=== PATIENT | female | born 1980 | race Two or more races ===

== ENCOUNTER 2019-05-03 08:11 | Day surgery (SDC) | payer SELFPAY ==
[2019-05-03] MEDS ORDERED: Sodium Chloride 0.9% 10 ML Syringe FLUSH PRN (08:54)
[2019-05-03] MEDS ORDERED: Ondansetron 4 MG/2 ML SDV IVPUSH ONE (08:54)
[2019-05-03] MEDS ORDERED: Sodium Chloride 0.9% 1,000 ML IV SCH (09:00)
--- NOTE | 2019-05-03 09:03 | EDM.PDOC ---
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 She reports her last menstrual period was around 02/24/2019, making her about 9.5 weeks . She reports that the bleeding has been bright red and fills the toilet bowl. Her abdomen has a burning pain with abdominal cramping that she rates at a 10/ 10 in severity. She has been nauseous since the bleeding and abdominal pain started and has had an episode of emesis at least every 15-30 minutes. At this point the vomit is mainly bile and secretions. She reports she has had morning sickness twice since becoming , but reports this feels different. ( Adenike Ferreira) - Related Data Allergies Allergy/AdvReac Type Severity Reaction Status Date / Time No Known Allergies Allergy Verified 05/03/19 08:45 Home Meds: Home Meds . [No Known Home Meds] 05/03/19 [History] Social & Family History - Tobacco Use Smoking Status *Q: Never Smoker <Adenike Ferreira - Last Filed: 05/03/19 08:57> ED ROS GENERAL - Review of Systems Review Of Systems: See Below Constitutional: Reports: Chills, Diaphoresis. Denies: Fever Respiratory: Reports: No Symptoms. Denies: Shortness of Breath, Wheezing, Cough Cardiovascular: Reports: Chest Pain (occasional with emesis). Denies: Edema, Lightheadedness, Syncope GI/Abdominal: Reports: Abdominal Pain (burning/cramping in lower abdomen), Nausea, Vomiting. Denies: Diarrhea, Hematemesis : Reports: Other (bleeding bright red with no clots since 0145). Denies: Dysuria Musculoskeletal: Reports: No Symptoms. Denies: Back Pain, Muscle Pain Skin: Reports: Pallor. Denies: Rash, Erythema Neurological: Reports: No Symptoms. Denies: Dizziness, Headache, Syncope Psychiatric: Reports: No Symptoms <Adenike Ferreira - Last Filed: 05/03/19 08:57> ED EXAM - Physical Exam Exam: See Below Exam Limited By: No Limitations General Appearance: Alert, WD/WN, Moderate Distress Head: Atraumatic, Normocephalic Respiratory/Chest: No Respiratory Distress, Lungs Clear, Normal Breath Sounds, No Accessory Muscle Use, Chest Non-Tender Cardiovascular: Normal Peripheral Pulses, Regular Rate, Rhythm, No Edema, No Gallop, No Murmur, No Rub GI/Abdominal Exam: Normal Bowel Sounds, Soft, No Organomegaly, No Distention, Tender (generalized, more severe in lower quadrants) Back Exam: Normal Inspection, Full Range of Motion Extremities: Normal Inspection, Normal Range of Motion, Non-Tender, No Pedal Edema, Normal Capillary Refill Neurological: Alert, Oriented, Normal Cognition, No Motor/Sensory Deficits Psychiatric: Normal Affect, Normal Mood Skin Exam: Warm, Dry, Intact, No Rash, Diaphoretic, Pallor <Adenike Ferreira - Last Filed: 05/03/19 08:57> Course <Adenike Ferreira - Last Filed: 05/03/19 08:57> <Trevon Nolen - Last Filed: 05/08/19 18:54> - Vital Signs Last Recorded V/S: Last Vital Signs Temp 98.3 F 05/04/19 08:00 Pulse 106 H 05/03/19 19:58 Resp 16 05/04/19 08:00 BP 114/69 05/04/19 08:00 Pulse Ox 98 05/04/19 08:00 Orthostatic Blood Pressure [ 99/66 Standing] Orthostatic Blood Pressure [ 114/74 Sitting] Orthostatic Blood Pressure [ 99/66 Supine] - Orders/Labs/Meds Labs: Laboratory Tests 05/03/19 05/03/19 05/03/19 Range/Units 10:05 10:05 10:05 WBC 22.61 H (3.98-10.04) K/mm3 RBC 5.12 (3.98-5.22) M/mm3 Hgb 15.0 (11.2-15.7) gm/dl Hct 46.5 H (34.1-44.9) % MCV 90.8 (79.4-94.8) fl MCH 29.3 (25.6-32.2) pg MCHC 32.3 (32.2-35.5) g/dl RDW Std Deviation 40.4 (36.4-46.3) fL Plt Count 284 (182-369) K/mm3 MPV 9.5 (9.4-12.3) fl Neut % (Auto) 93.0 H (34.0-71.1) % Lymph % (Auto) 4.1 L (19.3-51.7) % Lipscomb % (Auto) 2.4 L (4.7-12.5) % Eos % (Auto) 0.1 L (0.7-5.8) Baso % (Auto) 0.1 (0.1-1.2) % Neut # (Auto) 21.03 H (1.56-6.13) K/mm3 Lymph # (Auto) 0.93 L (1.18-3.74) K/mm3 Lipscomb # (Auto) 0.54 H (0.24-0.36) K/mm3 Eos # (Auto) 0.02 L (0.04-0.36) K/mm3 Baso # (Auto) 0.03 (0.01-0.08) K/mm3 Manual Slide Review Abnormal smear Sodium 139 (136-145) mEq/L Potassium 4.1 (3.5-5.1) mEq/L Chloride 103 (98-107) mEq/L Carbon Dioxide 24 (21-32) mEq/L Anion Gap 16.1 H (5-15) BUN 9 (7-18) mg/dL Creatinine 0.8 (0.55-1.02) mg/dL Est Cr Clr Drug Dosing 69.16 mL/min Estimated GFR (MDRD) > 60 (>60) mL/min BUN/Creatinine Ratio 11.3 L (14-18) Glucose 155 H (74-106) mg/dL Calcium 9.4 (8.5-10.1) mg/dL Total Bilirubin 0.5 (0.2-1.0) mg/dL AST 14 L (15-37) U/L ALT 19 (14-59) U/L Alkaline Phosphatase 67 (46-116) U/L Total Protein 8.9 H (6.4-8.2) g/dl Albumin 4.6 (3.4-5.0) g/dl Globulin 4.3 gm/dL Albumin/Globulin Ratio 1.1 (1-2) HCG, Qual Positive H (NEGATIVE) HCG, Quant mIU/mL 05/03/19 05/03/19 05/03/19 Range/Units 10:05 17:27 17:27 WBC 17.83 H (3.98-10.04) K/mm3 RBC 4.08 (3.98-5.22) M/mm3 Hgb 12.1 D (11.2-15.7) gm/dl Hct 37.5 (34.1-44.9) % MCV 91.9 (79.4-94.8) fl MCH 29.7 (25.6-32.2) pg MCHC 32.3 (32.2-35.5) g/dl RDW Std Deviation 39.7 (36.4-46.3) fL Plt Count 260 (182-369) K/mm3 MPV 9.1 L (9.4-12.3) fl Neut % (Auto) 94.6 H (34.0-71.1) % Lymph % (Auto) 4.9 L (19.3-51.7) % Lipscomb % (Auto) 0.3 L (4.7-12.5) % Eos % (Auto) 0 L (0.7-5.8) Baso % (Auto) 0.1 (0.1-1.2) % Neut # (Auto) 16.87 H (1.56-6.13) K/mm3 Lymph # (Auto) 0.87 L (1.18-3.74) K/mm3 Lipscomb # (Auto) 0.06 L (0.24-0.36) K/mm3 Eos # (Auto) 0.00 L (0.04-0.36) K/mm3 Baso # (Auto) 0.01 (0.01-0.08) K/mm3 Manual Slide Review Abnormal smear Sodium (136-145) mEq/L Potassium (3.5-5.1) mEq/L Chloride (98-107) mEq/L Carbon Dioxide (21-32) mEq/L Anion Gap (5-15) BUN (7-18) mg/dL Creatinine (0.55-1.02) mg/dL Est Cr Clr Drug Dosing mL/min Estimated GFR (MDRD) (>60) mL/min BUN/Creatinine Ratio (14-18) Glucose (74-106) mg/dL Calcium (8.5-10.1) mg/dL Total Bilirubin (0.2-1.0) mg/dL AST (15-37) U/L ALT (14-59) U/L Alkaline Phosphatase (46-116) U/L Total Protein (6.4-8.2) g/dl Albumin (3.4-5.0) g/dl Globulin gm/dL Albumin/Globulin Ratio (1-2) HCG, Qual (NEGATIVE) HCG, Quant 7535.0 4050.0 mIU/mL Meds: Medications Discontinued Medications Generic Name Dose Route Start Last Admin Trade Name Freq PRN Reason Stop Dose Admin Bupivacaine HCl Confirm 05/03/19 14:44 Marcaine 0.5% Administered 05/03/19 14:45 Dose 30 ml .ROUTE .STK-MED ONE Cefazolin Sodium Confirm 05/03/19 14:45 Ancef Administered 05/03/19 14:46 Dose 2 gm .ROUTE .STK-MED ONE Fentanyl Confirm 05/03/19 14:45 Sublimaze Administered 05/03/19 14:46 Dose 250 mcg .ROUTE .STK-MED ONE Hydromorphone HCl 0.5 mg 05/03/19 11:19 05/03/19 11:42 Dilaudid IVPUSH 05/03/19 11:20 0.5 mg ONETIME ONE Administration Sodium Chloride 1,000 mls @ 999 mls/hr 05/03/19 09:00 05/03/19 10:13 Normal Saline IV 999 mls/hr ONETIME RENNY Administration Lactated Ringer's 1,000 mls @ 150 mls/hr 05/03/19 13:54 05/03/19 16:36 Ringers, Lactated IV 05/03/19 20:33 150 mls/hr ONETIME ONE Administration Lidocaine HCl Confirm 05/03/19 14:45 Xylocaine-Mpf 1% Administered 05/03/19 14:46 Dose 4 mls @ as directed .ROUTE .STK-MED ONE Lactated Ringer's Confirm 05/03/19 14:45 Ringers, Lactated Administered 05/03/19 14:46 Dose 1,000 mls @ as directed .ROUTE .STK-MED ONE Lactated Ringer's 1,000 mls @ 125 mls/hr 05/03/19 16:42 05/04/19 03:52 Ringers, Lactated IV 125 mls/hr ASDIRECTED RENNY Administration Ketorolac Tromethamine Confirm 05/03/19 15:30 Toradol Administered 05/03/19 15:31 Dose 30 mg .ROUTE .STK-MED ONE Metoclopramide HCl 5 mg 05/03/19 11:19 05/03/19 11:40 Reglan IVPUSH 05/03/19 11:20 5 mg ONETIME ONE Administration Midazolam HCl Confirm 05/03/19 14:45 Versed 1 Mg/Ml Administered 05/03/19 14:46 Dose 2 mg .ROUTE .STK-MED ONE Ondansetron HCl 4 mg 05/03/19 08:54 05/03/19 10:13 Zofran IVPUSH 05/03/19 08:55 4 mg ONETIME ONE Administration Ondansetron HCl Confirm 05/03/19 14:45 Zofran Administered 05/03/19 14:46 Dose 4 mg .ROUTE .STK-MED ONE Ondansetron HCl 4 mg 05/03/19 16:42 Zofran IVPUSH Q4H PRN Nausea/Vomiting Propofol Confirm 05/03/19 14:45 Diprivan 20 Ml Administered 05/03/19 14:46 Dose 400 mg .ROUTE .STK-MED ONE Rocuronium Medicine Bow Confirm 05/03/19 14:45 Zemuron Administered 05/03/19 14:46 Dose 50 mg .ROUTE .STK-MED ONE Sodium Chloride 10 ml 05/03/19 08:54 05/03/19 10:06 Saline Flush FLUSH 10 ml ASDIRECTED PRN Administration Keep Vein Open Succinylcholine Chloride Confirm 05/03/19 14:45 Succinylcholine In Ns Pf Administered 05/03/19 14:46 Dose 100 mg .ROUTE .STK-MED ONE - Re-Assessments/Exams Free Text/Narrative Re-Assessment/Exam: 05/03/19 11:05. ultrasound report is back, no intrauterine gestational sac, 2 small uterine fibroids, hemorrhagic cyst 3.5 cm within the right ovary GEN of surrounding free fluid or blood. 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 I agree with hx and exam as documented. I have also interviewed patient and her and examined patient. Still awaiting HCG. She was given zofran IV which did not stop the vomiting. Still having moderate pelvic pain, will give reglan IV, dilaudid 0.5 mg IV. 05/03/19 11:55. hCG is positive quantitative hCG ordered. white blood count elevated at 22,000, hemoglobin 15, Other chemistries relatively normal.She iis resting more comfortably now after IV reglan and dialuaid. We have done orth's, BP 99/66, 71 lying, 99/66, 75 standing but she did get dizzy, lightheaded standing. 05/03/19 12:40. Quant. Hcg 7535 reeforcing strong concern for ectopic . I have discussed this with Dr Rachel, she will come see patient in ED, will keep her NPO. (Trevon Nolen) Departure <Adenike Ferreira - Last Filed: 05/03/19 08:57> - Departure Time of Disposition: 10:40 <Trevon Nolen - Last Filed: 05/08/19 18:54> - Departure Disposition: DC/Tfer to [facility] Clinical Impression: Abdominal cramping, gestational, Ectopic of right ovary Sepsis Event Note - Evaluation Sepsis Screening Result: No Definite Risk - Focused Exam Date Exam was Performed: 05/03/19 Time Exam was Performed: 08:57 <Adenike Ferreira - Last Filed: 05/03/19 08:57> - Focused Exam Date Exam was Performed: 05/08/19 Time Exam was Performed: 18:53 <Trevon Nolen - Last Filed: 05/08/19 18:54>
--- NOTE | 2019-05-03 11:00 | US ---
First trimester obstetrical ultrasound: Multiple real-time images were obtained transvaginally. 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 Two hypoechoic areas are noted within the uterine myometrium most likely representing fibroid with one located anteriorly measuring 1.3 cm and one posteriorly measuring 1.7 cm. No intrauterine gestational sac is seen. Right ovary shows a complicated cyst likely hemorrhagic measuring 3.5 cm. Impression: 1. Bicornuate uterus. 2. No intrauterine gestational sac. 3. Two small uterine fibroids. 4. Hemorrhagic cyst measuring 3.5 cm within the right ovary. Diagnostic code #3 Study was dictated in [place] Standard Time
[2019-05-03] MEDS ORDERED: Metoclopramide 10 MG/2 ML SDV IVPUSH ONE (11:19)
[2019-05-03] MEDS ORDERED: HYDROmorphone 0.5 MG/0.5 ML Syringe IVPUSH ONE (11:19)
[2019-05-03] MEDS: Lactated Ringers 1,000 ML IV ONE ×2 (13:55→16:36)
[2019-05-03] MEDS ORDERED: Bupivacaine 0.5% 30 ML SDV ONE (14:44)
[2019-05-03] MEDS ORDERED: ceFAZolin 1 GM Vial ONE (14:45)
[2019-05-03] MEDS ORDERED: fentaNYL 250 MCG/5 ML SDV ONE (14:45)
[2019-05-03] MEDS ORDERED: Rocuronium 50 MG/5 ML Vial ONE (14:45)
[2019-05-03] MEDS ORDERED: Ondansetron 4 MG/2 ML SDV ONE (14:45)
[2019-05-03] MEDS ORDERED: Lactated Ringers 1,000 ML ONE (14:45)
[2019-05-03] MEDS ORDERED: Midazolam 1 MG/ML 2 ML SDV ONE (14:45)
[2019-05-03] MEDS ORDERED: Lidocaine 1% 4 ML ONE (14:45)
[2019-05-03] MEDS ORDERED: Propofol 200 MG/20 ML SDV ONE (14:45)
[2019-05-03] MEDS ORDERED: Succinylcholine/Normal Saline 100 MG/5 ML Syringe ONE (14:45)
--- NOTE | 2019-05-03 14:47 | PCM.HP.2 ---
H&P History of Present Illness - General Date of Service: 05/03/19 Source of Information: Patient, Family History Limitations: Reports: No Limitations - History of Present Illness Initial Comments - Free Text/Narative: 38 year old female with LMP of 12.5.19 and no care prior to today within this presents complaining of severe abdominal pain and vomiting with a slight amount of spotting this morning. HCG in ER greater than 7000 with no intrauterine gestational sac and a hemorrhagic cyst with fluid in abdomen. No history of prior pain or significant nausea this . No bleeding prior to some bleeding this morning that patient describes as heavy but that did not soak a pad. Location: Reports: Abdomen Quality: Reports: Other (severe) Improves with: Reports: Other (dilaudid) Worsens with: Reports: Breathing Associated Symptoms: Reports: Nausea/Vomiting Pelvic Pain Score (Numeric/FACES): 10 - Related Data Allergies/Adverse Reactions: Allergies Allergy/AdvReac Type Severity Reaction Status Date / Time No Known Allergies Allergy Verified 05/03/19 08:45 Home Medications: Home Meds . 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: Ectopic : 1 Para: 0 LMP (Approximate): Other OB/BYN History: no infertility, no history of STDs Social & Family History - Tobacco Use Smoking Status *Q: Never Smoker H&P Review of Systems - Review of Systems: Review Of Systems: See Below General: Denies: Fever, Chills HEENT: Reports: No Symptoms Pulmonary: Reports: No Symptoms Cardiovascular: Reports: No Symptoms Gastrointestinal: Reports: Abdominal Pain, Vomiting Genitourinary: Reports: No Symptoms Musculoskeletal: Reports: No Symptoms Skin: Reports: No Symptoms Psychiatric: Reports: No Symptoms Neurological: Reports: No Symptoms Hematologic/Lymphatic: Reports: No Symptoms Immunologic: Reports: No Symptoms Exam - Exam Exam: See Below - Vital Signs Vital Signs: Last Vital Signs Temp 36.7 C 05/03/19 08:39 Pulse 79 05/03/19 08:39 Resp 16 05/03/19 08:39 BP 117/85 05/03/19 08:39 Pulse Ox 100 05/03/19 08:39 Orthostatic Blood Pressure [ 99/66 Standing] Orthostatic Blood Pressure [ 114/74 Sitting] Orthostatic Blood Pressure [ 99/66 Supine] Weight: 65.771 kg - Exam General: Alert, Oriented, 4 HEENT: PERRLA, Hearing Intact, Mucosa Moist & Rice Tracts, Nares Patent, Normal Nasal Septum, Posterior Pharynx Clear, Conjunctiva Clear, EOMI, EACs Clear, TMs Clear Neck: Supple, Trachea Midline, 2 Cardiovascular: Regular Rate, Tachycardia GI/Abdominal Exam: Normal Bowel Sounds, Soft, No Organomegaly, No Distention, Rebound, Tender (Female) Exam: Uterine Tenderness Rectal (Female) Exam: Normal Exam, Normal Rectal Tone Back Exam: Normal Inspection, Full Range of Motion, NT Extremities: Normal Inspection, Normal Range of Motion, Non-Tender, No Pedal Edema, Normal Capillary Refill Skin: Warm, Dry, Intact Neurological: Cranial Nerves Intact, Reflexes Equal Bilateral Neuro Extensive - Mental Status: Alert, Oriented x3, Normal Mood/Affect, Normal Cognition Neuro Extensive - Motor, Sensory, Reflexes: CN II-XII Intact, Normal Gait, Normal Reflexes Psychiatric: Alert, Normal Affect, Normal Mood - Patient Data Lab Results Last 24 hrs: Laboratory Results - last 24 hr 05/03/19 05/03/19 05/03/19 Range/Units 10:05 10:05 10:05 WBC 22.61 H (3.98-10.04) K/mm3 RBC 5.12 (3.98-5.22) M/mm3 Hgb 15.0 (11.2-15.7) gm/dl Hct 46.5 H (34.1-44.9) % MCV 90.8 (79.4-94.8) fl MCH 29.3 (25.6-32.2) pg MCHC 32.3 (32.2-35.5) g/dl RDW Std Deviation 40.4 (36.4-46.3) fL Plt Count 284 (182-369) K/mm3 MPV 9.5 (9.4-12.3) fl Neut % (Auto) 93.0 H (34.0-71.1) % Lymph % (Auto) 4.1 L (19.3-51.7) % Grayson % (Auto) 2.4 L (4.7-12.5) % Eos % (Auto) 0.1 L (0.7-5.8) Baso % (Auto) 0.1 (0.1-1.2) % Neut # (Auto) 21.03 H (1.56-6.13) K/mm3 Lymph # (Auto) 0.93 L (1.18-3.74) K/mm3 Grayson # (Auto) 0.54 H (0.24-0.36) K/mm3 Eos # (Auto) 0.02 L (0.04-0.36) K/mm3 Baso # (Auto) 0.03 (0.01-0.08) K/mm3 Manual Slide Review Abnormal smear Sodium 139 (136-145) mEq/L Potassium 4.1 (3.5-5.1) mEq/L Chloride 103 (98-107) mEq/L Carbon Dioxide 24 (21-32) mEq/L Anion Gap 16.1 H (5-15) BUN 9 (7-18) mg/dL Creatinine 0.8 (0.55-1.02) mg/dL Est Cr Clr Drug Dosing 69.16 mL/min Estimated GFR (MDRD) > 60 (>60) mL/min BUN/Creatinine Ratio 11.3 L (14-18) Glucose 155 H (74-106) mg/dL Calcium 9.4 (8.5-10.1) mg/dL Total Bilirubin 0.5 (0.2-1.0) mg/dL AST 14 L (15-37) U/L ALT 19 (14-59) U/L Alkaline Phosphatase 67 (46-116) U/L Total Protein 8.9 H (6.4-8.2) g/dl Albumin 4.6 (3.4-5.0) g/dl Globulin 4.3 gm/dL Albumin/Globulin Ratio 1.1 (1-2) HCG, Qual Positive H (NEGATIVE) HCG, Quant mIU/mL 05/03/19 Range/Units 10:05 WBC (3.98-10.04) K/mm3 RBC (3.98-5.22) M/mm3 Hgb (11.2-15.7) gm/dl Hct (34.1-44.9) % MCV (79.4-94.8) fl MCH (25.6-32.2) pg MCHC (32.2-35.5) g/dl RDW Std Deviation (36.4-46.3) fL Plt Count (182-369) K/mm3 MPV (9.4-12.3) fl Neut % (Auto) (34.0-71.1) % Lymph % (Auto) (19.3-51.7) % Grayson % (Auto) (4.7-12.5) % Eos % (Auto) (0.7-5.8) Baso % (Auto) (0.1-1.2) % Neut # (Auto) (1.56-6.13) K/mm3 Lymph # (Auto) (1.18-3.74) K/mm3 Grayson # (Auto) (0.24-0.36) K/mm3 Eos # (Auto) (0.04-0.36) K/mm3 Baso # (Auto) (0.01-0.08) K/mm3 Manual Slide Review Sodium (136-145) mEq/L Potassium (3.5-5.1) mEq/L Chloride (98-107) mEq/L Carbon Dioxide (21-32) mEq/L Anion Gap (5-15) BUN (7-18) mg/dL Creatinine (0.55-1.02) mg/dL Est Cr Clr Drug Dosing mL/min Estimated GFR (MDRD) (>60) mL/min BUN/Creatinine Ratio (14-18) Glucose (74-106) mg/dL Calcium (8.5-10.1) mg/dL Total Bilirubin (0.2-1.0) mg/dL AST (15-37) U/L ALT (14-59) U/L Alkaline Phosphatase (46-116) U/L Total Protein (6.4-8.2) g/dl Albumin (3.4-5.0) g/dl Globulin gm/dL Albumin/Globulin Ratio (1-2) HCG, Qual (NEGATIVE) HCG, Quant 7535.0 mIU/mL Result Diagrams: 05/03/19 10:05 05/03/19 10:05 Sepsis Event Note - Evaluation Sepsis Screening Result: No Definite Risk - Focused Exam Vital Signs: Vital Signs Temp Pulse Resp BP Pulse Ox 05/03/19 08:39 36.7 C 79 16 117/85 100 Date Exam was Performed: 05/03/19 Time Exam was Performed: 14:42 Problem List Initiated/Reviewed/Updated: Yes Orders Last 24hrs: Active Orders 24 hr Category Date Time Status Peripheral IV Care [RC] . DIRECTED Care 05/03/19 08:54 Active Lactated Ringers [Ringers, Lactated] 1,000 ml Med 05/03/19 13:54 Active IV ONETIME Sodium Chloride 0.9% [Normal Saline] 1,000 ml Med 05/03/19 09:00 Active IV ONETIME Sodium Chloride 0.9% [Saline Flush] Med 05/03/19 08:54 Active 10 ml FLUSH ASDIRECTED PRN Peripheral IV Insertion Adult [OM.PC] Stat Oth 05/03/19 08:54 Ordered Medication Orders Sodium Chloride (Normal Saline) 1,000 mls @ 999 mls/hr IV ONETIME RENNY Last Admin: 05/03/19 10:13 Dose: 999 mls/hr Lactated Ringer's (Ringers, Lactated) 1,000 mls @ 150 mls/hr IV ONETIME ONE Stop: 05/03/19 20:33 Last Admin: 05/03/19 13:55 Dose: 150 mls/hr Sodium Chloride (Saline Flush) 10 ml FLUSH ASDIRECTED PRN PRN Reason: Keep Vein Open Last Admin: 05/03/19 10:06 Dose: 10 ml Assessment/Plan Comment:: Probable ectopic given minimal to no vaginal bleeding, empty uterus, severe pain and fluid on ultrasound. Discussed need for diagnostic laparoscopy. Of not WBC also elevated. Will observe this closely but denies ill contacts, anorexia or other preceding symptoms. Risks, benefits and alternatives discussed. Patient and spouse voice understanding and wish to proceed. Will plan laparoscopic surgery with probable salpingectomy.
--- NOTE | 2019-05-03 14:52 | PCM.PREANE ---
Preanesthetic Assessment - Procedure Proposed Procedure: laparoscopic salpingectomy - Anesthesia/Transfusion/Family Hx Anesthesia History: No Prior Anesthesia Family History of Anesthesia Reaction: No Transfusion History: No Prior Transfusion(s) - Review of Systems General: No Symptoms Pulmonary: No Symptoms Cardiovascular: No Symptoms Gastrointestinal: Abdominal Pain (this am), Vomiting Neurological: No Symptoms Other: Reports: None - Physical Assessment NPO Status Date: 05/02/19 NPO Status Time: 22:00 Vital Signs: Last Vital Signs Temp 98.0 F 05/03/19 08:39 Pulse 79 05/03/19 08:39 Resp 16 05/03/19 08:39 BP 117/85 05/03/19 08:39 Pulse Ox 100 05/03/19 08:39 Orthostatic Blood Pressure [ 99/66 Standing] Orthostatic Blood Pressure [ 114/74 Sitting] Orthostatic Blood Pressure [ 99/66 Supine] Height: 5 ft Weight: 65.771 kg ASA Class: 1E Mental Status: Alert & Oriented x3 Airway Class: Mallampati = 1 Dentition: Reports: Missing Tooth/Teeth (loose teeth) Thyro-Mental Finger Breadths: 3 Mouth Opening Finger Breadths: 3 ROM/Head Extension: Full Lungs: Clear to Auscultation, Normal Respiratory Effort Cardiovascular: Regular Rate, Regular Rhythm - Lab Values: Laboratory Last Values WBC 22.61 K/mm3 (3.98-10.04) H 05/03/19 10:05 RBC 5.12 M/mm3 (3.98-5.22) 05/03/19 10:05 Hgb 15.0 gm/dl (11.2-15.7) 05/03/19 10:05 Hct 46.5 % (34.1-44.9) H 05/03/19 10:05 MCV 90.8 fl (79.4-94.8) 05/03/19 10:05 MCH 29.3 pg (25.6-32.2) 05/03/19 10:05 MCHC 32.3 g/dl (32.2-35.5) 05/03/19 10:05 RDW Std Deviation 40.4 fL (36.4-46.3) 05/03/19 10:05 Plt Count 284 K/mm3 (182-369) 05/03/19 10:05 MPV 9.5 fl (9.4-12.3) 05/03/19 10:05 Neut % (Auto) 93.0 % (34.0-71.1) H 05/03/19 10:05 Lymph % (Auto) 4.1 % (19.3-51.7) L 05/03/19 10:05 Stanton % (Auto) 2.4 % (4.7-12.5) L 05/03/19 10:05 Eos % (Auto) 0.1 (0.7-5.8) L 05/03/19 10:05 Baso % (Auto) 0.1 % (0.1-1.2) 05/03/19 10:05 Neut # (Auto) 21.03 K/mm3 (1.56-6.13) H 05/03/19 10:05 Lymph # (Auto) 0.93 K/mm3 (1.18-3.74) L 05/03/19 10:05 Stanton # (Auto) 0.54 K/mm3 (0.24-0.36) H 05/03/19 10:05 Eos # (Auto) 0.02 K/mm3 (0.04-0.36) L 05/03/19 10:05 Baso # (Auto) 0.03 K/mm3 (0.01-0.08) 05/03/19 10:05 Manual Slide Review Abnormal smear 05/03/19 10:05 Sodium 139 mEq/L (136-145) 05/03/19 10:05 Potassium 4.1 mEq/L (3.5-5.1) 05/03/19 10:05 Chloride 103 mEq/L (98-107) 05/03/19 10:05 Carbon Dioxide 24 mEq/L (21-32) 05/03/19 10:05 Anion Gap 16.1 (5-15) H 05/03/19 10:05 BUN 9 mg/dL (7-18) 05/03/19 10:05 Creatinine 0.8 mg/dL (0.55-1.02) 05/03/19 10:05 Est Cr Clr Drug Dosing 69.16 mL/min 05/03/19 10:05 Estimated GFR (MDRD) > 60 mL/min (>60) 05/03/19 10:05 BUN/Creatinine Ratio 11.3 (14-18) L 05/03/19 10:05 Glucose 155 mg/dL (74-106) H 05/03/19 10:05 Calcium 9.4 mg/dL (8.5-10.1) 05/03/19 10:05 Total Bilirubin 0.5 mg/dL (0.2-1.0) 05/03/19 10:05 AST 14 U/L (15-37) L 05/03/19 10:05 ALT 19 U/L (14-59) 05/03/19 10:05 Alkaline Phosphatase 67 U/L (46-116) 05/03/19 10:05 Total Protein 8.9 g/dl (6.4-8.2) H 05/03/19 10:05 Albumin 4.6 g/dl (3.4-5.0) 05/03/19 10:05 Globulin 4.3 gm/dL 05/03/19 10:05 Albumin/Globulin Ratio 1.1 (1-2) 05/03/19 10:05 HCG, Qual Positive (NEGATIVE) H 05/03/19 10:05 HCG, Quant 7535.0 mIU/mL 05/03/19 10:05 - Allergies Allergies/Adverse Reactions: Allergies Allergy/AdvReac Type Severity Reaction Status Date / Time No Known Allergies Allergy Verified 05/03/19 08:45 - Blood Blood Available: No - Acknowledgements Anesthesia Type Planned: General Anesthesia Pt an Appropriate Candidate for the Planned Anesthesia: Yes Alternatives and Risks of Anesthesia Discussed w Pt/Guardian: Yes Pt/Guardian Understands and Agrees with Anesthesia Plan: Yes PreAnesthesia Questionnaire Cardiovascular History: Reports: None Respiratory History: Reports: None Gastrointestinal History: Reports: None : 1 Para: 0 Musculoskeletal History: Reports: None Neurological History: Reports: None Psychiatric History: Reports: None Oncologic (Cancer) History: Reports: None - SUBSTANCE USE Smoking Status *Q: Never Smoker Tobacco Use Within Last Twelve Months: No Second Hand Smoke Exposure: No Recreational Drug Use History: No - HOME MEDS Home Medications: Home Meds . [No Known Home Meds] 05/03/19 [History] - CURRENT (IN HOUSE) MEDS Current Meds: Current Medications Sodium Chloride (Normal Saline) 1,000 mls @ 999 mls/hr IV ONETIME RENNY Last Admin: 05/03/19 10:13 Dose: 999 mls/hr Lactated Ringer's (Ringers, Lactated) 1,000 mls @ 150 mls/hr IV ONETIME ONE Stop: 05/03/19 20:33 Last Admin: 05/03/19 13:55 Dose: 150 mls/hr Sodium Chloride (Saline Flush) 10 ml FLUSH ASDIRECTED PRN PRN Reason: Keep Vein Open Last Admin: 05/03/19 10:06 Dose: 10 ml Discontinued Medications Hydromorphone HCl (Dilaudid) 0.5 mg IVPUSH ONETIME ONE Stop: 05/03/19 11:20 Last Admin: 05/03/19 11:42 Dose: 0.5 mg Metoclopramide HCl (Reglan) 5 mg IVPUSH ONETIME ONE Stop: 05/03/19 11:20 Last Admin: 05/03/19 11:40 Dose: 5 mg Ondansetron HCl (Zofran) 4 mg IVPUSH ONETIME ONE Stop: 05/03/19 08:55 Last Admin: 05/03/19 10:13 Dose: 4 mg
[2019-05-03] MEDS ORDERED: Ketorolac 30 MG/ML SDV ONE (15:30)
--- NOTE | 2019-05-03 15:37 | PCM.OPNOTE ---
- General Post-Op/Procedure Note Date of Surgery/Procedure: 05/03/19 Operative Procedure(s): exam under anesthesia, suction dilation and curettage Findings: Exam under anesthesia revealed tissue consistent with products of conception in vagina that had not been appreciated on exam prior. Bicornuate uterus with both cavity sound to 6 cm and 7 mm curette with good lawrence bilaterally Pre Op Diagnosis: Probable ectopic Post-Op Diagnosis: Incomplete Anesthesia Technique: General ET Tube Primary Surgeon: Tiana Rachel Anesthesia Provider: Farrah Marie Pathology: products of conception Fluid Replacement, Intraop: 1,000 EBL in mLs: 40 Complications: None Condition: Good Free Text/Narrative:: Taken to OR. Prepped and draped in lithotomy. Exam under anesthesia revealed above findings. Discussed consent for dilation and curettage with partner. Dilation and curettage preformed in usual fashion. Significant clot and tissue from left. Tolerated well.
--- NOTE | 2019-05-03 15:47 | PCM.POSTAN ---
POST ANESTHESIA ASSESSMENT - MENTAL STATUS Mental Status: Somnolent - VITAL SIGNS Vital Signs: Last Vital Signs Temp 98.3 F 05/03/19 14:45 Pulse 72 05/03/19 14:45 Resp 22 H 05/03/19 14:45 BP 109/78 05/03/19 14:45 Pulse Ox 100 05/03/19 14:45 Orthostatic Blood Pressure [ 99/66 Standing] Orthostatic Blood Pressure [ 114/74 Sitting] Orthostatic Blood Pressure [ 99/66 Supine] 98/51 94% 24 116 99.1 - RESPIRATORY Respiratory Status: Respiratory Rate WNL, Airway Patent, O2 Saturation Stable, Supplemental Oxygen - CARDIOVASCULAR CV Status: Pulse Rate WNL, Blood Pressure Stable - GASTROINTESTINAL GI Status: No Symptoms - PAIN Pain Score: 0 (sleeping) - POST OP HYDRATION Hydration Status: Adequate & Stable
--- NOTE | 2019-05-03 16:28 | PCM48HPAN ---
Post Anesthesia Note - EVALUATION WITHIN 48HRS OF ANESTHETIC Vital Signs in Normal Range: Yes Patient Participated in Evaluation: Yes Respiratory Function Stable: Yes Airway Patent: Yes Cardiovascular Function Stable: Yes Hydration Status Stable: Yes Pain Control Satisfactory: Yes Nausea and Vomiting Control Satisfactory: Yes Mental Status Recovered: Yes (rests quietly with no complainrts) Vital Signs: Last Vital Signs Temp 98.9 F 05/03/19 16:10 Pulse 103 H 05/03/19 16:10 Resp 18 05/03/19 16:10 BP 101/54 L 05/03/19 16:10 Pulse Ox 99 05/03/19 16:10 Orthostatic Blood Pressure [ 99/66 Standing] Orthostatic Blood Pressure [ 114/74 Sitting] Orthostatic Blood Pressure [ 99/66 Supine]
[2019-05-03] MEDS ORDERED: Ondansetron 4 MG/2 ML SDV IVPUSH PRN (16:42)
[2019-05-03] MEDS: Lactated Ringers 1,000 ML IV SCH ×2 (17:06→19:56)
[2019-05-04] MEDS: Lactated Ringers 1,000 ML IV SCH (03:52)
== END 2019-05-04 09:57 ==
LOC: JD.ED 08:11 → JD.SDS 14:38 → JD.ICU 15:38 → JD.SDS 05-04 09:57
PROVIDERS: ATTEND Obstetrics & Gynecology
DX: O03.4 Incomplete spontaneous abortion without complication (principal)
CPT/HCPCS: 36415; 59812; 76817; 80053; 84702; 84703; 85025; J0330; J0690; J1170; J1885; J2001; J2250; J2405; J2704; J2765; J3010; J3490; J7030; J7120; 01965; 96361; 96374; 96375; 99284; 99285-25

== ENCOUNTER 2019-09-14 06:19 | Emergency (ER) | payer SELFPAY ==
[2019-09-14] MEDS ORDERED: Ondansetron 4 MG/2 ML SDV IVPUSH ONE (06:40)
[2019-09-14] MEDS ORDERED: HYDROmorphone 0.5 MG/0.5 ML Syringe IVPUSH ONE ×2 (06:42→07:42)
--- NOTE | 2019-09-14 06:44 | EDM.PDOC ---
<ShelleyZander A - Last Filed: 09/14/19 06:55> ED HPI GENERAL MEDICAL PROBLEM - General Chief Complaint: Abdominal Pain Stated Complaint: VOMITING/ABDOMINAL PAIN Time Seen by Provider: 09/14/19 06:30 Source of Information: Reports: Patient, Family () History Limitations: Reports: No Limitations - History of Present Illness INITIAL COMMENTS - FREE TEXT/NARRATIVE: Mrs. Hobson is a pleasant 39-year-old woman with no chronic medical problems and no past surgical history, who is now brought to the ED by her , after developing crampy lower abdominal pain, along with nausea and vomiting around 03:00 this morning. No associated fever, diarrhea, or urinary symptoms. The patient did not take any medications or home remedies prior to coming to the ED. No prior similar symptoms. The patient states that she started her menstrual period 2 days ago, 09/12/2019. Here in the ED, the patient is found to be hemodynamically stable, afebrile, saturating 98% on room air. Other than this morning's symptoms, the patient denies recent fever, chills, sore throat, ear pain, nasal or sinus congestion, cough, dyspnea, chest pain, palpitations, nausea, vomiting, constipation, diarrhea, abdominal pain, urinary symptoms, recent weight gain or weight loss, recent bloody bowel movements or black bowel movements, recent joint aches, headaches, or rashes. The patient does not have a PCP. Abdominal Pain Score (Numeric/FACES): 8 - Related Data Allergies Allergy/AdvReac Type Severity Reaction Status Date / Time No Known Allergies Allergy Verified 09/14/19 06:30 Home Meds: Home Meds Diclofenac Sodium [Voltaren] 50 mg PO TID #9 tab.ec 09/14/19 [Rx] oxyCODONE HCl/Acetaminophen [Percocet 5-325 mg Tablet] 1 - 2 each PO Q4H PRN #14 tablet 09/14/19 [Rx] Past Medical History THIRD OFFICER History: Reports: Spontaneous (x 1, 02/24/2019) : 1 Para: 0 Social & Family History - Tobacco Use Smoking Status *Q: Never Smoker - Alcohol Use Alcohol Use History: No - Recreational Drug Use Recreational Drug Use: No - Living Situation & Occupation Living situation: Reports: , with Spouse Occupation: Unemployed ED ROS GENERAL - Review of Systems Review Of Systems: Comprehensive ROS is negative, except as noted in HPI. ED EXAM, GI/ABD - Physical Exam Exam: See Below Exam Limited By: No Limitations General Appearance: Mild Distress (appears fatigued), Thin Eyes: Bilateral: Normal Appearance, EOMI Ears: Normal External Exam, Hearing Grossly Normal Nose: Normal Inspection Throat/Mouth: Normal Inspection, Normal Lips, Normal Voice, No Airway Compromise Head: Atraumatic, Normocephalic Neck: Normal Inspection, Full Range of Motion Respiratory/Chest: No Respiratory Distress, Lungs Clear, Normal Breath Sounds, No Accessory Muscle Use Cardiovascular: Normal Peripheral Pulses, Regular Rate, Rhythm, No Edema, No Gallop, No JVD, No Murmur, No Rub GI/Abdominal Exam: Normal Bowel Sounds, Soft, Non-Tender (including the lower abdomen), No Organomegaly, No Distention, No Abnormal Bruit, No Mass (Female) Exam: Deferred Rectal (Female) Exam: Deferred Back Exam: Normal Inspection, Full Range of Motion. No: CVA Tenderness (L), CVA Tenderness (R) Extremities: Normal Inspection, Normal Range of Motion, No Pedal Edema, Normal Capillary Refill Neurological: Oriented, Normal Cognition, No Motor/Sensory Deficits Psychiatric: Normal Affect Skin Exam: Warm, Dry, Intact, Normal Color, No Rash Course - Re-Assessments/Exams Free Text/Narrative Re-Assessment/Exam: 09/14/19 06:41 As above, the patient developed lower abdominal pain, nausea, and vomiting around 03:00 this morning. On examination, her abdomen is soft with active bowel sounds, and no apparent tenderness. I have ordered a work-up that includes blood work, a urinalysis that will need to be performed by quick catheter, since she is on her menstrual period, and an upright abdominal x-ray. On the off-chance that the patient is experiencing the miscarriage of an unknown , I have also added a quantitative hCG. In the meantime, the patient will be given IV fluid, IV Dilaudid, and IV Zofran. 09/14/19 06:[address] Salmeron, and care of the patient turned over to him at this time, for change of shift. Departure - Departure Disposition: Home, Self-Care 01 Clinical Impression: Inevitable spontaneous - Discharge Information Prescriptions: oxyCODONE HCl/Acetaminophen [Percocet 5-325 mg Tablet] 1 - 2 each PO Q4H PRN #14 tablet PRN Reason: pain relief. Diclofenac Sodium [Voltaren] 50 mg PO TID #9 tab.ec Referrals: PCP,None [Primary Care Provider] - Forms: ED Department Discharge Additional Instructions: Evaluation in the emergency room this morning in regards to acute onset of diffuse lower abdominal cramping pain early this morning. Associated bleeding per vagina. Possibility of existed and testing proved to be positive. Concern was for possible tubal due to the severe cramping you are experiencing. Transvaginal ultrasound performed reveals a davis gestational sac which is abnormal in terms that is very large with debris within it in the uterus cavity. No heartbeat was identified on ultrasound indicating the has failed. This is usually because there is something wrong with the way the baby is developing and mother nature has turned off growth of the fetus. You are therefore suffering a inevitable miscarriage. Your blood type was found to be B positive. Do much heavier period than normal at home. You will likely pass tissue today and then early portions of the placenta over the next 2 days. Suggest Voltaren 50 mg every 8 hours for the next 3 days to reduce pain and flow. Percocet tab 5/325 mg usually 1 tablet every 4 hours but may take 2 if needed for pain relief. Follow-up with THIRD OFFICER physician in 3 weeks time to make sure that you are hormonal called the beta-hCG has returned completely to normal. Suggest the women's clinic here in [place] either with Dr. Alex Pittman or Silvina Forrester. These call [phone] to arrange an appointment. Need to return to the ED if you are flowing heavy enough to soak a pad per hour for more than 2 consecutive hours. Sepsis Event Note (ED) - Evaluation Sepsis Screening Result: No Definite Risk <Schuyler Salmeron - Last Filed: 09/14/19 09:33> Course - Vital Signs Last Recorded V/S: Last Vital Signs Temp 36.1 C 09/14/19 06:28 Pulse 64 09/14/19 06:28 Resp 16 09/14/19 06:28 BP 129/90 09/14/19 06:28 Pulse Ox 98 09/14/19 06:28 - Orders/Labs/Meds Orders: Active Orders 24 hr Category Date Time Status PATIENT RETYPE [BBK] Routine Lab 09/14/19 08:45 Ordered UA W/MICROSCOPIC [URIN] Stat Lab 09/14/19 06:38 Ordered Ketorolac [Toradol] Med 09/14/19 09:30 Ordered 30 mg IVPUSH ONETIME Lactated Ringers [Ringers, Lactated] 1,000 ml Med 09/14/19 07:45 Active IV .BOLUS fentaNYL [Sublimaze] Med 09/14/19 09:22 Once 50 mcg IVPUSH ONETIME ONE Medication Orders Lactated Ringer's (Ringers, Lactated) 1,000 mls @ 999 mls/hr IV .BOLUS RENNY Last Admin: 09/14/19 07:49 Dose: 999 mls/hr Documented by: NATALIO Labs: Laboratory Tests 09/14/19 09/14/19 09/14/19 Range/Units 06:55 06:55 06:55 WBC 24.72 H (3.98-10.04) K/mm3 RBC 4.77 (3.98-5.22) M/mm3 Hgb 14.1 D (11.2-15.7) gm/dl Hct 43.7 (34.1-44.9) % MCV 91.6 (79.4-94.8) fl MCH 29.6 (25.6-32.2) pg MCHC 32.3 (32.2-35.5) g/dl RDW Std Deviation 40.6 (36.4-46.3) fL Plt Count 277 (182-369) K/mm3 MPV 8.8 L (9.4-12.3) fl Neutrophils % (Manual) 95 H (40-60) % Band Neutrophils % 0 (0-10) % Lymphocytes % (Manual) 4 L (20-40) % Atypical Lymphs % 0 % Monocytes % (Manual) 1 L (2-10) % Eosinophils % (Manual) 0 L (0.7-5.8) % Basophils % (Manual) 0 L (0.1-1.2) Toxic Granulation Platelet Estimate Adequate Plt Morphology Comment Normal RBC Morph Comment Normal Sodium 140 (136-145) mEq/L Potassium 4.7 (3.5-5.1) mEq/L Chloride 104 (98-107) mEq/L Carbon Dioxide 24 (21-32) mEq/L Anion Gap 16.7 H (5-15) BUN 7 (7-18) mg/dL Creatinine 0.8 (0.55-1.02) mg/dL Est Cr Clr Drug Dosing TNP Estimated GFR (MDRD) > 60 (>60) mL/min BUN/Creatinine Ratio 8.8 L (14-18) Glucose 164 H (74-106) mg/dL Calcium 9.3 (8.5-10.1) mg/dL Total Bilirubin 0.4 (0.2-1.0) mg/dL AST 18 (15-37) U/L ALT 22 (14-59) U/L Alkaline Phosphatase 72 (46-116) U/L C-Reactive Protein (<1.0) mg/dL Total Protein 8.0 (6.4-8.2) g/dl Albumin 4.1 (3.4-5.0) g/dl Globulin 3.9 gm/dL Albumin/Globulin Ratio 1.1 (1-2) Lipase 72 L (73-393) U/L HCG, Quant 871.0 mIU/mL Blood Type Gel Antibody Screen 09/14/19 09/14/19 Range/Units 06:55 06:55 WBC (3.98-10.04) K/mm3 RBC (3.98-5.22) M/mm3 Hgb (11.2-15.7) gm/dl Hct (34.1-44.9) % MCV (79.4-94.8) fl MCH (25.6-32.2) pg MCHC (32.2-35.5) g/dl RDW Std Deviation (36.4-46.3) fL Plt Count (182-369) K/mm3 MPV (9.4-12.3) fl Neutrophils % (Manual) (40-60) % Band Neutrophils % (0-10) % Lymphocytes % (Manual) (20-40) % Atypical Lymphs % % Monocytes % (Manual) (2-10) % Eosinophils % (Manual) (0.7-5.8) % Basophils % (Manual) (0.1-1.2) Toxic Granulation Platelet Estimate Plt Morphology Comment RBC Morph Comment Sodium (136-145) mEq/L Potassium (3.5-5.1) mEq/L Chloride (98-107) mEq/L Carbon Dioxide (21-32) mEq/L Anion Gap (5-15) BUN (7-18) mg/dL Creatinine (0.55-1.02) mg/dL Est Cr Clr Drug Dosing Estimated GFR (MDRD) (>60) mL/min BUN/Creatinine Ratio (14-18) Glucose (74-106) mg/dL Calcium (8.5-10.1) mg/dL Total Bilirubin (0.2-1.0) mg/dL AST (15-37) U/L ALT (14-59) U/L Alkaline Phosphatase (46-116) U/L C-Reactive Protein 1.4 H* (<1.0) mg/dL Total Protein (6.4-8.2) g/dl Albumin (3.4-5.0) g/dl Globulin gm/dL Albumin/Globulin Ratio (1-2) Lipase (73-393) U/L HCG, Quant mIU/mL Blood Type B POSITIVE Gel Antibody Screen Negative Meds: Medications Generic Name Dose Route Start Last Admin Trade Name Karen PRN Reason Stop Dose Admin Lactated Ringer's 1,000 mls @ 999 mls/hr 09/14/19 07:45 09/14/19 07:49 Ringers, Lactated IV 999 mls/hr .BOLUS RENNY Administration Discontinued Medications Generic Name Dose Route Start Last Admin Trade Name Karen PRN Reason Stop Dose Admin Hydromorphone HCl 0.5 mg 09/14/19 06:42 09/14/19 07:11 Dilaudid IVPUSH 09/14/19 06:43 0.5 mg ONETIME ONE Administration Hydromorphone HCl 0.5 mg 09/14/19 07:42 09/14/19 07:49 Dilaudid IVPUSH 09/14/19 07:43 0.5 mg ONETIME ONE Administration Lactated Ringer's 1,000 mls @ 150 mls/hr 09/14/19 06:45 09/14/19 07:09 Ringers, Lactated IV 150 mls/hr ASDIRECTED RENNY Administration Ondansetron HCl 4 mg 09/14/19 06:40 09/14/19 07:09 Zofran IVPUSH 09/14/19 06:41 4 mg ONETIME ONE Administration - Re-Assessments/Exams Free Text/Narrative Re-Assessment/Exam: 09/14/19 07:20: There assumed from Dr. Rosa at change of shift. I personally interviewed the patient and obtain a history and examined her abdomen. Pain is mostly suprapubic she cannot define that one side is worse than the other it is radiating to the back. There is a very strong colicky component to the pain. She is not using any form of control. She had a miscarriage 2 months ago. States that her period started yesterday. It is unclear if it is on time or abnormal in any way. Bowels have been working well. Denies any genitourinary complaints such as vaginal discharge fever or chills. Examination she is very tender suprapubically. Bowel sounds are active in all 4 quadrants. She just received IV analgesia for pain relief. Labs have been collected and she is awaiting her KUB. 09/14/19 07:36 Hematology reveals a markedly elevated white count at 24.72. Hemoglobin is 14.1 with hematocrit of 43.7. Platelet counts 277,000. The differential is pending. Sodium is 140 with a potassium of 4.7 chloride 104 with a bicarb of 24. Anion gap is 16.7 slightly elevated. BUN is 7 with a creatinine of 0.8. Glucose is 164 presumed to be a stress reaction as she is not diabetic calcium is 9.3. Liver function normal C-reactive protein is 1.4. Total protein is 8.0. Albumin fraction is 4.1. Lipase is 72 hCG quant is positive at 871. Therefore there is good chance that she is experiencing an ectopic . Blood type and screen ordered. 09/14/19 07:41 patient and appraised of the lab findings indicating that she is . Looking back she thinks her last known menstrual period was towards the beginning of July. Transvaginal ultrasound will be done. Patient is still very uncomfortable. Will repeat Dilaudid 0.5 mg IV. IV will be LR at open. 09/14/19 08:05 KUB reveals a positive air throughout the colon. There is inc reased stool in the cecum and throughout the descending colon. No bowel obstruction no free air.White blood cell differential reveals 95% neutrophils and no bands cells. C-reactive protein is 1.4 09/14/19 08:47 Patient has returned from ultrasound department. Vital signs are stable with BP 125/83. Sats are 96%. Heart rate is 65 and sinus. The transvaginal ultrasound reveals a davis Peng uterine gestation measuring 6 weeks 6 days. However no heart beat is evident. Will await the radiologist report in this regard. However it appears that she is actively miscarrying at this time. Patient's blood type is B positive. 09/14/19 09:23 Radiology report is now available and he agrees with my findings of the ultrasound. There is a davis intrauterine gestational sac the sac size is much larger than expected for the size of the pole. pole shows no heart activity. There is debris being seen within the gestational sac. This gestational sac is located within the lower uterine segment. Findings are most likely due to a nonviable . Coincidentally 2 small uterine fibroids suggested measuring 2.4 cm which is on the right side and 1.3 cm which is noted superiorly. Slightly complicated cyst noted within the right ovary measuring 3.0 cm. Left ovary is within normal limits no free fluid seen in the pelvis. Patient is still cramping quite this significantly. This will be her second miscarriage. She does not have an THIRD OFFICER. At this time she will be given Toradol 30 mg IV and fentanyl 50 mcg IV for pain relief. Plan will be to discharge her home on Voltaren 50 mg extended release twice daily for 3 days and Percocet tabs 5/325 mg x 12 1 tablet every 4-6 hours needed for pain relief. Advised to expect a very heavy. Or heavier than normal. She needs follow-up with THIRD OFFICER and I have suggested Dr. Alex Pittman here in the hospital. She will need a follow-up for hCG to make sure that it goes down to 0. Was advised to try and have 2 normal periods before trying to become once again. Departure - Departure Time of Disposition: 09:26 Condition: Fair - Discharge Information *PRESCRIPTION DRUG MONITORING PROGRAM REVIEWED*: Not Applicable *COPY OF PRESCRIPTION DRUG MONITORING REPORT IN PATIENT SATHYA: Not Applicable Sepsis Event Note (ED) - Focused Exam Vital Signs: Vital Signs Temp Pulse Resp BP Pulse Ox 09/14/19 06:28 36.1 C 64 16 129/90 98 - My Orders Last 24 Hours: My Active Orders 09/14/19 07:45 Lactated Ringers [Ringers, Lactated] 1,000 ml IV .BOLUS 09/14/19 08:45 PATIENT RETYPE [BBK] Routine 09/14/19 09:22 fentaNYL [Sublimaze] 50 mcg IVPUSH ONETIME ONE 09/14/19 09:30 Ketorolac [Toradol] 30 mg IVPUSH ONETIME - Assessment/Plan Last 24 Hours: My Active Orders 09/14/19 07:45 Lactated Ringers [Ringers, Lactated] 1,000 ml IV .BOLUS 09/14/19 08:45 PATIENT RETYPE [BBK] Routine 09/14/19 09:22 fentaNYL [Sublimaze] 50 mcg IVPUSH ONETIME ONE 09/14/19 09:30 Ketorolac [Toradol] 30 mg IVPUSH ONETIME
[2019-09-14] MEDS ORDERED: Lactated Ringers 1,000 ML IV SCH ×2 (06:45→07:45)
--- NOTE | 2019-09-14 08:11 | CR ---
Abdomen: Supine view of the abdomen was obtained. Comparison: No prior abdominal imaging. Slight scoliosis is present within the spine. Bowel gas pattern is normal. No abnormal calcifications or soft tissue abnormality is seen. Impression: 1. Nothing acute is seen on supine abdominal x-ray. Diagnostic code #1 This report was dictated in MDT
--- NOTE | 2019-09-14 09:15 | US ---
First trimester obstetrical ultrasound: Multiple real-time images were obtained. Comparison: No previous study for current . Findings: Intrauterine gestational sac is seen. Sac size is larger than expected for the size of the pole. pole shows no heart activity. There is debris being seen within the gestational sac. This gestational sac is located within the lower uterine segment. Findings are most likely due to nonviable . 2 small uterine fibroids suggested measuring 2.4 cm which is on the right side and 1.3 cm which is superiorly. Slightly complicated cyst noted within the right ovary measuring 3.0 cm. Left ovary is within normal limits. No free fluid is seen. Impression: 1. Abnormal gestational sac with pole showing no heart activity. Findings suggest nonviable . Sac is located within the lower uterine segment and is likely in the process of miscarrying. 2. Slightly complicated cyst within the right ovary measuring 3.0 cm. 3. 2 small uterine fibroids. Diagnostic code #3 This report was dictated in MDT
[2019-09-14] MEDS ORDERED: fentaNYL 100 MCG/2 ML SDV IVPUSH ONE ×2 (09:22→09:32)
[2019-09-14] MEDS ORDERED: Ketorolac 30 MG/ML SDV IVPUSH SCH (09:30)
== END 2019-09-14 10:03 | disposition home or self-care (01) ==
LOC: JD.ED 06:19
DX: O03.9 Complete or unspecified spontaneous abortion without complication (principal); R11.2 Nausea with vomiting, unspecified
CPT/HCPCS: 36415; 74018; 76817; 80053; 83690; 84702; 85007; 85027; 86140; 86850; 86900; 86901; 96361; 96374; 96375; 96376; 99284; J1170; J1885; J2405; J3010; J7120